=== PATIENT | male | born 1990 | race Caucasian/White ===

== ENCOUNTER 2023-11-23 16:24 | Emergency (ER) | payer OTHER, SELFPAY ==
[2023-11-23 16:36] VITALS: BP 148/101; PULSE 59; RESP 20; TEMP 35.8; O2SAT 99
--- NOTE | 2023-11-23 17:24 | ED.ABDPAIN ---
HPI - Abdominal Pain General Chief Complaint: Abdominal Pain Stated Complaint: Abdominal Pain/Nausea Source: patient Mode of arrival: ambulatory Limitations: no limitations History of Present Illness HPI narrative: Patient presents for evaluation of abdominal pain, nausea, vomiting. Symptom onset two days ago. He had resolution of the symptoms yesterday but recurrence today. He reports fever and chills today. He states that pain feels like an empty hunger which is raging , rated 6/10 in severity. He indicates he had similar symptoms a few weeks ago. He does not follow healthy diet. He does use marijuana. He denies any recent alcohol use. No recent sick contacts to his knowledge. Last BM was this morning, mostly solid, without the presence of blood or mucous in the stool. Denies any urinary symptoms. Related Data Home Medications Medication Instructions Recorded Confirmed No Home Medications 11/23/23 11/23/23 Review of Systems Review of Systems: CONSTITUTIONAL: Denies fever, chills, or sweats. EYES: Denies visual changes, redness, or discharge. ENT: Denies rhinorrhea, congestion, sore throat, or otalgia. CARDIOVASCULAR: Denies chest pain, palpitations, or edema. RESPIRATORY: Denies cough or dyspnea. GASTROINTESTINAL: Reports abdominal pain, nausea, and vomiting. Denies any diarrhea or constipation. GENITOURINARY: Denies dysuria or hematuria. SKIN: Denies rash or itching. MUSCULOSKELETAL: Denies back pain, joint pain, or myalgia. NEUROLOGIC: Denies headache, numbness, dizziness, or weakness. PSYCHIATRIC: Denies anxiety or depression. PMFSH Past Medical History Medical History No pertinent past medical history Surgical History Surgical History No pertinent past surgical history Family History Family History Mother Family history non-contributory Social History Social History Substance use: current Substance use type: marijuana Gender identity (if verbalized by the patient): Male Spiritual care concerns: No Exam Narrative: GENERAL: Well-appearing, well-nourished, and in no acute distress. HEAD: Normocephalic, atraumatic. EYES: PERRLA and EOMI. ENT: Nares clear, no rhinorrhea or epistaxis. Mucous membranes moist. Oropharynx without tonsillar hypertrophy exudate or other lesions. Bilateral TMs pearly guan nonbulging NECK: Supple. No adenopathy or masses. No carotid bruits or JVD CHEST: Clear to auscultation. No respiratory distress. No wheezes rales or rhonchi HEART: Regular rate and rhythm. No murmur heard. Normal peripheral pulses. ABDOMEN: Soft, nondistended, normal active bowel sounds. Epigastric and left upper quadrant tenderness without rebound or guarding EXTREMITIES: Normal range of motion. No edema. SKIN: Warm, dry, no rash. NEURO: No focal deficits. Alert and oriented x3. PSYCH: Normal mood and affect. Course Course Emergency Course: This is a 33-year-old male who presented for evaluation of abdominal pain, nausea, vomiting, fever and chills. Primary considerations would be cholecystitis versus cholelithiasis versus pancreatitis. I recommended he be transferred to the emergency department for labs and potential imaging. He was agreeable. [facility] is his facility of choice. I contacted [facility] and spoke with provider, Lyndsay Ashley, who indicated that Dr Yeh would accept pt to the Dept there. Patient transferred via private vehicle Level of Care: Express Care Visit Vital Signs Vital signs: Vital Signs Temperature 35.8 C L 11/23/23 16:36 Pulse Rate 59 L 11/23/23 16:36 Respiratory Rate 20 11/23/23 16:36 Blood Pressure 148/101 H 11/23/23 16:36 Pulse Oximetry 99 11/23/23 16:36 Oxyge
== END 2023-11-23 17:29 | disposition short-term general hospital (02) ==
PROVIDERS: Emergency Provider Nurse Practitioner
DX: R10.13 Epigastric pain (principal); R10.12 Left upper quadrant pain; F12.90 Cannabis use, unspecified, uncomplicated
CPT/HCPCS: 99212; G0463

== ENCOUNTER 2023-11-23 17:38 | Emergency (ER) | payer OTHER, SELFPAY ==
--- NOTE | ~2023-11-23 | CT_ITS ---
CT of the Abdomen and Pelvis: Indication: Abdominal pain Technique: 2.5 mm axial scans were obtained through the abdomen and pelvis following intravenous adm inistration of 100 cc of Omnipaque 350. Dose reduction technique was used on this scan by utilizing a utomated exposure control and iterative reconstruction technique. The dose-length product (DLP) was 1 871.27 mGy-cm. Findings: Scans through the lung bases are unremarkable. The liver, spleen, pancreas, gallbladder, adrenals and kidneys are within normal limits. No evidence of aortic aneurysm. No lymphadenopathy. No bowel obstruction or bowel wall thickening. There is no evidence to suggest acute appendicitis. Images through the pelvis were performed. Urinary bladder unremarkable. No pelvic mass seen. No ascit es. Impression: No significant abnormalities seen. Reviewed, dictated and finalized at [facility]. Impression: No significant abnormalities seen.
[2023-11-23 17:45] VITALS: BP 157/91; PULSE 59; RESP 18; TEMP 36.5; O2SAT 99
[2023-11-23 20:45] VITALS: BP 141/90; PULSE 54; RESP 20; TEMP 36.7; O2SAT 100
--- NOTE | 2023-11-23 21:46 | ED.ABDPAIN ---
HPI - Abdominal Pain General Chief Complaint: Abdominal Pain Stated Complaint: abd pain Time Seen by Provider: 11/23/23 20:45 Source: patient Mode of arrival: ambulatory Limitations: no limitations History of Present Illness HPI narrative: Patient is a 33-year-old male who presents the ED with report of upper abdominal pain. Patient reports having persistent pain since around 11:00 a.m. this morning. He notes he ate several slices of pizza before going to bed last night. Pain has been constant since the onset. He reports he has had 5 episodes of similar pain in the past 4-5 months. He states the episodes seem to be increasing in frequency and severity. Today's episode has been the longest lasting episode thus far. Episodes seem to be related to eating fatty foods. He has not taken anything for pain. Associated with nausea and vomiting this morning, subjective fevers. Denies diarrhea, constipation. Related Data Allergies Allergy/AdvReac Type Severity Reaction Status Date / Time No Known Allergies Allergy Verified 11/23/23 17:39 Review of Systems Review of Systems: All systems reviewed & are unremarkable except as noted in HPI. All systems reviewed & are unremarkable except as noted in HPI and below PMFSH Past Medical History Medical History No pertinent past medical history Surgical History Surgical History No pertinent past surgical history Family History Family History Mother Family history non-contributory Social History Social History Substance use: current Substance use type: marijuana Gender identity (if verbalized by the patient): Male Spiritual care concerns: No Exam Narrative: GENERAL: Well appearing, morbidly obese with BMI of 48.2, non-toxic, in no acute distress. HEAD: Normocephalic, atraumatic. RESPIRATORY: Airway patent, respirations nonlabored. Clear to auscultation bilaterally, no rales, rhonchi, wheezing. CARDIOVASCULAR: Regular rate and rhythm without murmurs, rubs, or gallops. ABDOMINAL: Soft, tenderness in epigastric region, right upper quadrant, no appreciable Bell sign. Nondistended. Normoactive BS. MUSCULOSKELETAL: Moves all extremities. No gross deformities. SKIN: Warm, dry, normal color. NEURO: A&O X3. Speech clear. PSYCHIATRIC: Appropriate mood and affect. Normal interaction. Course Vital Signs Vital signs: Vital Signs Temperature 97.7 F 11/23/23 17:45 Pulse Rate 59 L 11/23/23 17:45 Respiratory Rate 18 11/23/23 17:45 Blood Pressure 157/91 H 11/23/23 17:45 Pulse Oximetry 99 11/23/23 17:45 Oxygen Delivery Room Air 11/23/23 17:45 Temperature 98.1 F 11/23/23 20:45 Pulse Rate 66 11/24/23 00:24 Respiratory Rate 18 11/24/23 00:24 Blood Pressure 150/73 H 11/24/23 00:24 Pulse Oximetry 98 11/24/23 00:24 Oxygen Delivery Room Air 11/23/23 17:45 MDM - Abdominal Pain MDM Narrative Medical decision making narrative: Patient presented to ED with episodic epigastric abdominal pain, nausea, vomiting. Worse with eating. Vital signs are stable upon arrival. Patient is in no acute distress. History concerning for biliary colic versus cholecystitis versus pancreatitis. Will obtain lab and imaging to further evaluate, attempt pain control. CBC without leukocytosis. H and H is stable. CMP with stable electrolytes. Stable kidney function. Normal bilirubin and LFTs. Lipase is however elevated to 1451, consistent with pancreatitis. UA was clear. EKG nonischemic. Troponin is undetectable. CT scan of abdomen pelvis was obtained and without acute process. Discussed lab and imaging findings with patient. He is feeling better with supportive therapy. Pain and nausea are improved at this
[2023-11-23 21:57] LABS: Basophils Percent Auto 0.4 % (0.2-1.2); Hematocrit 45.3 % (42.0-52.0); Hemoglobin 15.9 g/dL (14.0-18.0); Immature Granulocyte Percent A 1.1 % (0-0.5); Lymphocytes Absolute Auto 1.44 K/mm3 (0.9-3.2); Lymphocytes Percent Auto 15.2 % (18.3-44.2); Mean Corpuscular HGB Conc 35.1 g/dl (32-36); Mean Corpuscular Hemoglobin 30.3 pg (26-34); Mean Corpuscular Volume 86.5 fl (80-100); Mean Platelet Volume 10.1 fl (7.4-10.4); Monocytes Absolute Auto 0.5 K/mm3 (0.1-0.6); Monocytes Percent Auto 4.8 % (2.6-8.5); Neutrophils Absolute Auto 7.4 K/mm3 (1.3-6.7); Neutrophils Percent Auto 78.5 % (45.5-73.1); Platelet Count Result 264 k/mm3 (150-375); Red Blood Count 5.24 M/mm3 (4.6-6.20); Red Cell Distribution Width 12.8 % (11.5-14.5); White Blood Count 9.5 K/mm3 (4.5-10.0)
[2023-11-23] MEDS: SODIUM CHLORIDE 0.9% IV 1,000 ML 999 ML IV CONT (22:04)
[2023-11-23] MEDS: MORPHINE SULFATE (*CRX) 4 MG/ML INJ IV PUSH (22:04)
[2023-11-23] MEDS: ONDANSETRON INJ 4 MG/2 ML VIAL IV PUSH (22:05)
[2023-11-23 22:08] LABS: Add Urine Microscopic? YES; Appearance Urine Clear (Clear); Bacteria Urine None Seen /hpf; Bilirubin Urine Negative (Negative); Blood Urine Negative (Negative); Color Urine Yellow (Yellow); Glucose Urine UA Negative (Negative); Ketones Urine Negative (Negative); Leukocyte Esterase Ur Negative LEU/UL (Negative); Nitrate Urine Negative (Negative); Non Pathogenic Casts 0-2; Protein Urine Trace mg/dL (Negative); RBC Urine 0-2 /hpf (0-2); Specific Grav Ur 1.027 (1.001-1.035); Squamous Epithelial Cell Urine None Seen /hpf (Few); Urobilinogen Urine 0.2 mg/dL (<2.0); WBC Urine 0-5 /hpf (0-3); pH Urine 5.5 (5.0-9.0)
[2023-11-23 22:14] VITALS: O2SAT 99
[2023-11-23 22:15] VITALS: O2SAT 99
[2023-11-23 22:15] LABS: Alanine Aminotransferase 35 U/L (6-50); Albumin Level 4.7 g/dL (3.5-5.1); Alkaline Phosphatase 72 U/L (38-126); Anion Gap 8 mmol/L (4-12); Aspartate Amino Transferase 37 U/L (17-59); Bilirubin,Total 0.6 mg/dL (0.2-1.3); Blood Urea Nitrogen 13 mg/dL (9-20); Calcium 8.7 mg/dL (8.4-10.2); Carbon Dioxide 24 mmol/L (22-30); Chloride 104 mmol/L (98-107); Estimated CRCL calculation 145 ml/min; Estimated Glomerular Filt Rate > 60; Glucose 104 mg/dL (65-110); Lipase 1451 U/L (23-300); Potassium 4.1 mmol/L (3.4-5.0); Sodium 136 mmol/L (137-145)
[2023-11-23 22:16] VITALS: BP 121/67; PULSE 66; RESP 18; O2SAT 97
[2023-11-23 22:24] LABS: Troponin I < 0.012 ng/mL (0.000-0.034)
[2023-11-23 22:30] VITALS: O2SAT 97
[2023-11-24] MEDS: SODIUM CHLORIDE 0.9% IV 1,000 ML 999 ML IV CONT (00:23)
[2023-11-24 00:24] VITALS: BP 150/73; PULSE 66; RESP 18; O2SAT 98
--- NOTE | 2023-11-24 00:33 | ECG_ITS ---
Test Date: 2023-11-24 00:33:01 Measurements Intervals [place] Rate: 62 P: 16 WV: 155 QRS: 41 QRSD: 100 T: 45 QT: 443 QTc: 451 Interpretive Statements SINUS RHYTHM WITH SINUS ARRHYTHMIA BASELINE ARTIFACT- V4-V6 NORMAL ECG No previous ECG available for comparison Electronically Signed On 11-24-2023 07:50:30 CDT by Elvin Du D.O.
[2023-11-24] MEDS: ONDANSETRON INJ 4 MG/2 ML VIAL IV PUSH (01:59)
[2023-11-24 02:28] LABS: Triglycerides 148 mg/dL (<150)
[2023-11-24 02:38] VITALS: BP 143/88; PULSE 88; RESP 19; TEMP 36.6; O2SAT 100
== END 2023-11-24 02:40 | disposition home or self-care (01) ==
PROVIDERS: Emergency Provider Physician Assistant
DX: K85.90 Acute pancreatitis without necrosis or infection, unspecified (principal)
CPT/HCPCS: 36415; 74177; 80053; 81001; 83690; 84478; 84484; 85025; 85055; 93005; 96361; 96374; 96375; 99284; J2270; J2405; J7030; Q9967

== ENCOUNTER 2023-12-09 07:42 | Outpatient (CLI) | payer OTHER, SELFPAY ==
--- NOTE | ~2023-12-09 | US_ITS ---
Limited ABDOMINAL ULTRASOUND Ordering provider: Lyndsay Ashley PA-C History: . K85.90 - Acute pancreatitis without necrosis or infection... . Comparison: None. FINDINGS: LIVER: Partially visualized with no definite abnormality. Normal flow of the portal vein. GALLBLADDER: Polyps are seen in the anterior wall. Stone is noted which measures 1 9 x 2.8 x 0.9 cm. No evidence for sludge, gallbladder wall thickening or pericholecystic fluid collections. Wall thickn ess is 1.8 mm. A negative sonographic Bell's sign was noted. BILIARY DUCTS: No evidence for intra or extrahepatic biliary dilation. Common bile duct measures 5.3 mm in diameter which is within normal limits. PANCREAS: Partially visualized with no definite abnormality. IMPRESSION: Cholelithiasis. Gallbladder polyps. Otherwise, Unremarkable limited ultrasound of the abdomen. Reviewed, dictated and finalized at location A.
== END 2023-12-09 07:43 | disposition home or self-care (01) ==
LOC: ANHIMG 07:49
PROVIDERS: Visit Provider Physician Assistant
DX: K80.20 Calculus of gallbladder without cholecystitis without obstruction (principal); K85.90 Acute pancreatitis without necrosis or infection, unspecified
CPT/HCPCS: 76705

== ENCOUNTER 2024-02-10 16:51 | Emergency (ER) | payer OTHER, SELFPAY ==
--- NOTE | ~2024-02-10 | CT_ITS ---
EXAMINATION: CT abdomen pelvis w con DATE: 02/10/2024 18:38 INDICATION: Epigastric and right upper quadrant abdominal pain. TECHNIQUE: Computed tomography (CT) of the abdomen and pelvis was performed with 100 mL Omnipaque 350 intravenous contrast. Automated exposure control and iterative reconstruction technique were employe d. The dose-length product was 1807.73 mGy-cm. COMPARISON: CT abdomen and pelvis 11/23/2023 FINDINGS: The visualized portions of the lung bases demonstrate mild atelectasis. No pleural effusion . There is left atrial enlargement of the heart. Partially visualized is a small pericardial cyst. No pericardial effusion. The liver, gallbladder, spleen, pancreas, adrenal glands, and kidneys are norm al. There are no dilated loops of bowel. The appendix is normal. There are no pathologically enlarged lymph nodes. There is no free intraperitoneal fluid. There is mild thoracic and lumbar spondylosis. IMPRESSION: 1. No etiology for the patient's symptoms. Reviewed, dictated and finalized at location A. ED[facility] SPECIALIST
--- NOTE | ~2024-02-10 | US_ITS ---
EXAMINATION: US abdomen limited DATE: 02/10/2024 20:53 INDICATION: Right upper quadrant abdominal pain. TECHNIQUE: Multiple grayscale and Doppler ultrasound images of the abdomen were obtained. COMPARISON: CT abdomen and pelvis 02/10/2024 FINDINGS: The pancreas is obscured by bowel gas. The liver is normal without focal lesion. There is n ormal flow in main portal vein. The gallbladder is normal in size and contains sludge. No gallstones or gallbladder wall thickening. The common duct is normal and measures 3 mm. IMPRESSION: 1. No etiology for the patient's symptoms. Reviewed, dictated and finalized at location A. [facility]
[2024-02-10 17:08] VITALS: BP 146/100; PULSE 56; RESP 17; TEMP 36.5; O2SAT 100
--- NOTE | 2024-02-10 17:55 | ED.GENADULT ---
[facility] - General Adult General Chief complaint: Abdominal Pain Stated complaint: gall bladder issue Time Seen by Provider: 02/10/24 17:51 Source: patient Mode of arrival: ambulatory Limitations: no limitations History of Present Illness HPI narrative: This is a 33-year-old male who presents to the ED for chief complaint of upper abdominal pain beginning this morning after waking up. Reports that he had chicken tenders for dinner last night but did not eat this morning. States that he had nausea and vomiting that started around 11:00 a.m.. He feels this is probably a gallbladder related issue. States he was here a couple months ago for pancreas and gallbladder flare. He did follow-up with imaging but never followed up with surgeon on this issue. Denies fevers, chills, chest pain, shortness of breath. Related Data Allergies Allergy/AdvReac Type Severity Reaction Status Date / Time No Known Allergies Allergy Verified 02/10/24 18:06 Review of Systems Review of Systems: All systems as dictated in [facility] Past Medical History Medical History No pertinent past medical history Surgical History Surgical History No pertinent past surgical history Family History Family History Mother Family history non-contributory Social History Social History Substance use: current Substance use type: marijuana Gender identity (if verbalized by the patient): Male Spiritual care concerns: No Exam Narrative: GENERAL: Well-appearing, well-nourished, and in no acute distress. HEAD: Normocephalic, atraumatic. EYES: PERRLA and EOMI. ENT: Nares clear, no rhinorrhea or epistaxis. Mucous membranes moist. Oropharynx without tonsillar hypertrophy exudate or other lesions. NECK: Supple. No adenopathy or masses. CHEST: No respiratory distress. Clear to auscultation. No wheezes rales or rhonchi HEART: Regular rate and rhythm. No murmur heard. Normal peripheral pulses. ABDOMEN: Mildly tender right upper quadrant. Equivocal Bell sign. Negative McBurney's point. Soft, otherwise nontender, nondistended, normal active bowel sounds. MSK: Normal range of motion. No edema. SKIN: Warm, dry, no rash. NEURO: Alert and oriented x4. No focal deficits. PSYCH: Normal mood and affect. Course Reevaluation(s) Reevaluation #1: Patient is feeling much improved after antiemetics and pain medications. Reports that the nausea was really the most troublesome symptom today. He feels comfortable with going home Date: 02/10/24 Time: 21:13 Vital Signs Vital signs: Vital Signs Temperature 97.7 F 02/10/24 17:08 Pulse Rate 56 L 02/10/24 17:08 Respiratory Rate 17 02/10/24 17:08 Blood Pressure 146/100 H 02/10/24 17:08 Pulse Oximetry 100 02/10/24 17:08 Temperature 98.3 F 02/10/24 21:27 Pulse Rate 79 02/10/24 21:27 Respiratory Rate 16 02/10/24 21:27 Blood Pressure 138/71 02/10/24 21:27 Pulse Oximetry 99 02/10/24 21:27 Medical Decision Making [facility] Narrative Medical decision making narrative: This is a 33-year-old male who presents to the ED for chief complaint of abdominal pain with N/V. vitals are normal. Exam does show epigastric tenderness. Lab work does show slightly elevated lipase of 595 today. Biliary labs are normal. Cbc unremarkable. UA unremarkable. Abdominal ultrasound and CT imaging with contrast do not show any acute findings. No gallbladder stones or wall thickening. Suspect this was a transient episode of mild pancreatitis today. He has improved greatly with 2 L of fluids, antiemetics and pain meds. He is feeling ready to go home at this point. Rx for Zofran given. He will follow-up with surgeon as previously directed from last visit in October for the same issue. Patient will be discharged in stable condition. Supportive measures discussed and return precautions given. Patient is understanding and agreeable with plan for discharge with PCP follow-up. Vital Signs Vital Signs: Vital Signs Temperature 97.7 F 02/10/24 17:08 Pulse Rate 56 L 02/10/24 17:08 Respiratory Rate 17 02/10/24 17:08 Blood Pressure 146/100 H 02/10/24 17:08 Pulse Oximetry 100 12/17/24 17:08 Temperature 98.3 F 02/10/24 21:27 Pulse Rate 79 02/10/24 21:27 Respiratory Rate 16 02/10/24 21:27 Blood Pressure 138/71 02/10/24 21:27 Pulse Oximetry 99 02/10/24 21:27 Lab Data 02/10/24 17:51 02/10/24 17:51 Labs: Lab Results 02/10/24 Range/Units 17:51 WBC 9.2 (4.5-10.0) K/mm3 RBC 5.00 (4.6-6.20) M/mm3 Hgb 14.8 (14.0-18.0) g/dL Hct 43.0 (42.0-52.0) % MCV 86.0 (80-100) fl MCH 29.6 (26-34) pg MCHC 34.4 (32-36) g/dl RDW 12.6 (11.5-14.5) % Plt Count 267 (150-375) k/mm3 MPV 10.3 (7.4-10.4) fl Immature Gran % (Auto) 0.5 (0-0.5) % Neut % (Auto) 86.2 H (45.5-73.1) % Lymph % (Auto) 9.5 L (18.3-44.2) % [place] % (Auto) 3.6 (2.6-8.5) % Eos % (Auto) 0.0 (0-4.4) % Baso % (Auto) 0.2 (0.2-1.2) % Lymph # (Auto) 0.87 L (0.9-3.2) K/mm3 [place] # (Auto) 0.3 (0.1-0.6) K/mm3 Eos # (Auto) 0.0 (0-0.3) K/mm3 Baso # (Auto) 0.0 (0.0-0.1) K/mm3 Abs Immat Gran (auto) 0.05 H (0.00-0.031) K/mm3 Absolute Neuts (auto) 7.9 H (1.3-6.7) K/mm3 Absolute Nucleated RBC 0.000 (0.0-0.012) K/mm3 Nucleated RBC % 0.0 (0.0-0.2) % Sodium 137 (137-145) mmol/L Potassium 4.0 (3.4-5.0) mmol/L Chloride 104 (98-107) mmol/L Carbon Dioxide 27 (22-30) mmol/L Anion Gap 6 (4-12) mmol/L BUN 14 (9-20) mg/dL Creatinine 0.90 (0.7-1.3) mg/dL Estim Creat Clear Calc Not Reportable Estimated GFR > 60 (59 - ) Glucose 126 H (65-110) mg/dL Calcium 8.7 (8.4-10.2) mg/dL Total Bilirubin 0.5 (0.2-1.3) mg/dL AST 26 (17-59) U/L ALT 28 (6-50) U/L Alkaline Phosphatase 83 (38-126) U/L Total Protein 8.0 (6.3-8.2) g/dL Albumin 4.4 (3.5-5.1) g/dL Lipase 595 H (23-300) U/L Urine Color Yellow (Yellow) Urine Appearance Clear (Clear) Urine pH 7.5 (5.0-9.0) Ur Specific Umbarger 1.024 (1.001-1.035) Urine Protein Trace (Negative) mg/dL Urine Glucose (UA) Negative (Negative) mg/dL Urine Ketones Trace H (Negative) mg/dL Ur Blood (Man) Negative (Negative) Urine Nitrate Negative (Negative) Urine Bilirubin Negative (Negative) Urine Urobilinogen 1.0 (<2.0) mg/dL Leukocyte Esterase Rfl Negative (Negative) MILTON/UL Urine RBC 0-2 (0-2) /hpf Urine WBC 0-5 (0-3) /hpf Ur Squamous Epith Cells None seen (Few) /hpf Urine Bacteria None seen /hpf Urine Casts 0-2 Discharge Plan Discharge Clinical Impression: Elevated lipase, Abdominal pain Patient Disposition: Home, Self-Care Condition: Stable Instructions: Antibiotic Form Additional Instructions: Your exam and imaging today are reassuring overall. Please take Zofran as needed at home. Use Tylenol and ibuprofen regularly for pain control. Follow-up with surgeon as directed previously. If you have any new or worsening symptoms please return to the ER for further evaluation. Patient Language: Citizen Of [place] Prescriptions: New ondansetron 4 mg tablet,disintegrating 4 mg PO Q8H PRN (Reason: nausea and vomiting) Qty: 10 0RF No Action hydrocodone-acetaminophen 5-325 mg tablet 1 tablet PO Q6H PRN (Reason: pain) Qty: 15 0RF ondansetron 4 mg tablet,disintegrating 4 mg PO Q8H PRN (Reason: nausea and vomiting) Qty: 15 0RF Follow-up/Referrals: UNKNOWN,DOCTOR [Primary Care Provider] - Time of Disposition: 21:14
[2024-02-10 18:02] LABS: Basophils Percent Auto 0.2 % (0.2-1.2); Hemoglobin 14.8 g/dL (14.0-18.0); Immature Granulocyte Absolute 0.05 K/mm3 (0.00-0.031); Immature Granulocyte Percent A 0.5 % (0-0.5); Lymphocytes Absolute Auto 0.87 K/mm3 (0.9-3.2); Lymphocytes Percent Auto 9.5 % (18.3-44.2); Mean Corpuscular HGB Conc 34.4 g/dl (32-36); Mean Corpuscular Hemoglobin 29.6 pg (26-34); Mean Platelet Volume 10.3 fl (7.4-10.4); Monocytes Absolute Auto 0.3 K/mm3 (0.1-0.6); Monocytes Percent Auto 3.6 % (2.6-8.5); Neutrophils Absolute Auto 7.9 K/mm3 (1.3-6.7); Neutrophils Percent Auto 86.2 % (45.5-73.1); Platelet Count Result 267 k/mm3 (150-375); Red Cell Distribution Width 12.6 % (11.5-14.5); White Blood Count 9.2 K/mm3 (4.5-10.0)
[2024-02-10 18:06] LABS: Add Urine Microscopic? YES; Appearance Urine Clear (Clear); Bacteria Urine None Seen /hpf; Bilirubin Urine Negative (Negative); Blood Urine Negative (Negative); Color Urine Yellow (Yellow); Glucose Urine UA Negative (Negative); Ketones Urine Trace mg/dL (Negative); Leukocyte Esterase Ur Negative LEU/UL (Negative); Nitrate Urine Negative (Negative); Non Pathogenic Casts 0-2; Protein Urine Trace mg/dL (Negative); RBC Urine 0-2 /hpf (0-2); Specific Grav Ur 1.024 (1.001-1.035); Squamous Epithelial Cell Urine None Seen /hpf (Few); WBC Urine 0-5 /hpf (0-3); pH Urine 7.5 (5.0-9.0)
[2024-02-10 18:11] LABS: Alanine Aminotransferase 28 U/L (6-50); Albumin Level 4.4 g/dL (3.5-5.1); Alkaline Phosphatase 83 U/L (38-126); Anion Gap 6 mmol/L (4-12); Aspartate Amino Transferase 26 U/L (17-59); Bilirubin,Total 0.5 mg/dL (0.2-1.3); Blood Urea Nitrogen 14 mg/dL (9-20); Calcium 8.7 mg/dL (8.4-10.2); Carbon Dioxide 27 mmol/L (22-30); Chloride 104 mmol/L (98-107); Estimated Glomerular Filt Rate > 60; Glucose 126 mg/dL (65-110); Lipase 595 U/L (23-300); Sodium 137 mmol/L (137-145)
[2024-02-10] MEDS: LACTATED RINGERS 1,000 ML 999 ML IV CONT ×2 (19:09→19:10)
[2024-02-10] MEDS: ONDANSETRON INJ 4 MG/2 ML VIAL IV PUSH (19:10)
[2024-02-10] MEDS: MORPHINE SULFATE (*CRX) 4 MG/ML INJ IV PUSH (19:10)
[2024-02-10 21:27] VITALS: BP 138/71; PULSE 79; RESP 16; TEMP 36.8; O2SAT 99
== END 2024-02-10 21:24 | disposition home or self-care (01) ==
PROVIDERS: Emergency Medicine; Emergency Provider Physician Assistant
DX: R10.13 Epigastric pain (principal); R74.8 Abnormal levels of other serum enzymes
CPT/HCPCS: 36415; 74177; 76705; 80053; 81001; 83690; 85025; 96361; 96374; 96375; 99284; J2270; J2405; J7120; Q9967